=== PATIENT | female | born 1940 | race Caucasian/White ===

== ENCOUNTER 2019-11-14 13:55 | Outpatient (CLI) | payer MEDICARE, SELFPAY ==
--- NOTE | ~2019-11-14 | US_ITS ---
EXAMINATION: US retroperitoneal comp EXAM DATE: 11/14/2019 14:36 INDICATION: Hematuria. TECHNIQUE: Multiple grayscale and Doppler images of the kidneys were obtained (by a technologist who performed the scan) and subsequently reviewed. Comparison is made to prior examination from 09/24/2012 . FINDINGS: Right kidney: There is normal contour and echogenicity. It measures 9.8 x 4.1 x 6.8 centimeters. The re is a 1 cm renal cyst. There is no hydronephrosis. Left kidney: There is normal contour and echogenicity. It measures 11.0 x 4.8 x 7.0 centimeters. Th ere are no focal renal lesions identified. There is no hydronephrosis. Bladder unremarkable. IMPRESSION: 1. Sonographically unremarkable kidneys. Reviewed, dictated and finalized at location A.
== END 2019-11-14 13:56 | disposition home or self-care (01) ==
LOC: CHSIMG 13:56
PROVIDERS: PCP Internal Medicine; Visit Provider Internal Medicine
DX: R31.9 Hematuria, unspecified (principal)
CPT/HCPCS: 76770

== ENCOUNTER 2020-04-13 12:41 | Outpatient (CLI) | payer MEDICARE, SELFPAY ==
--- NOTE | ~2020-04-13 | XR_ITS ---
EXAMINATION: XR chest 2V EXAM DATE: 04/13/2020 12:56 INDICATION: Irregular heartbeat. TECHNIQUE: Frontal and lateral projections of the chest obtained and reviewed. Comparison is made to prior examination from 05/03/2016. FINDINGS: Chronic moderate hyperinflation. Mild cardiomegaly, heart size larger than in 2017. No con fluent consolidation, pneumothorax or pleural effusion suspected. There are mild bony degenerative ch anges. IMPRESSION: Cardiomegaly. Hyperinflation. Reviewed, dictated and finalized at location B. [facility]
== END 2020-04-13 12:42 | disposition home or self-care (01) ==
LOC: CHSIMG 12:43
PROVIDERS: PCP Internal Medicine; Visit Provider Internal Medicine
DX: I48.91 Unspecified atrial fibrillation (principal); I65.21 Occlusion and stenosis of right carotid artery
CPT/HCPCS: 71046

== ENCOUNTER 2020-04-19 13:15 | Outpatient (CLI) | payer MEDICARE, SELFPAY ==
--- NOTE | ~2020-04-19 | US_ITS ---
EXAMINATION: US carotid duplex BI DATE: 04/19/2020 14:54 INDICATION: Right carotid stenosis. TECHNIQUE: Grayscale, color Doppler, and pulsed Doppler images of the cervical carotid arteries were obtained. The degree of vessel stenosis is placed in one of the following categories: normal, <50%, 5 0-69%, >=70% but less than near-occlusion, near-occlusion, or total occlusion. Note that percent sten osis relative to normal distal artery lumen diameter is indirectly measured from velocity measurement s as described by Kamari, et al. Radiology 2003; [id number]:[id number]. COMPARISON: None. FINDINGS: RIGHT: The right common carotid artery (CCA) peak systolic velocity (PSV) is 50 cm/s. The right internal car otid artery (ICA) PSV is 60 cm/s. The right ICA end-diastolic velocity (EDV) is 31 cm/s. The right IC A/CCA PSV ratio is 1.2. Grayscale and color Doppler images yield an estimate of <50% diameter reducti on from plaque in the ICA. There is antegrade flow in the right vertebral artery. LEFT: The left CCA PSV is 65 cm/s. The left ICA PSV is 80 cm/s. The left ICA EDV is 38 cm/s. The left ICA/C CA PSV ratio is 1.2. Grayscale and color Doppler images yield an estimate of <50% diameter reduction from plaque in the ICA. There is antegrade flow in the left vertebral artery. IMPRESSION: 1. <50% stenosis in the right internal carotid artery. 2. <50% stenosis in the left internal carotid artery. Reviewed, dictated and finalized at location B. TIDIGITATOR
--- NOTE | 2020-04-19 13:23 | ECHO_ITS ---
Patient Info Name: Elva Campbell Age: 79 years : 1940 Gender: Female Ht: 64 in Wt: 140 lbs BSA: 1.70 m2 HR: 107 bpm BP: 188 / 124 mmHg Heart Rhythm: Atrial Fibrillation Technical Quality: Fair Exam Date: 04/19/2020 1:30 PM Exam Location: [facility] Patient Status: Outpatient Admit Date: 04/19/2020 Staff Ordering Physician: Kathe Villasenor MD Bilingual Spanish Inbound Sales: Tracie Arriola RDCS Attending Provider: Kathe Villasenor MD Referring Physician: Hamilton WATSON; Exam Type: CA echo doppler color flow Study Info Indications I49.9 - Cardiac arrhythmia, unspecified Complete two-dimensional, color flow and Doppler transthoracic echocardiogram is performed. Strain analysis performed. History/Risk Factors Hypertension: Yes Dyslipidemia: No Obesity: No Tobacco Use: Never DVT Treatment: Apixaban Deep Vein Thrombosis (DVT): None Frailty Scale (CSHA): 2: Well Summary 1. Complete two-dimensional, color flow and Doppler transthoracic echocardiogram is performed. 2. Left ventricular chamber dimension is normal. 3. Left ventricular systolic function is normal, estimated at 60-65%. 4. The left ventricular diastolic function is abnormal. 5. E/e' 28 is significantly elevated. 6. Global longitudinal strain is abnormal at -12.4%. 7. Right ventricular systolic function is reduced based on a TAPSE at 1.4 cm. 8. Left atrial chamber dimension is severely enlarged. 9. Right atrial chamber dimension is moderately enlarged. 10. There is mild aortic valve sclerosis. 11. The mitral valve has moderately calcified annulus. 12. There is moderate mitral valve regurgitation. 13. There is moderate tricuspid valve regurgitation. 14. Moderate pulmonary hypertension, estimated pulmonary arterial systolic pressure is 54 mmHg. Left Ventricle E/e' 28 is significantly elevated. Global longitudinal strain is abnormal at -12.4%. Left ventricular chamber dimension is normal. Left ventricular systolic function is normal, estimated at 60-65%. The left ventricular diastolic function is abnormal. Right Ventricle Right ventricular systolic function is reduced based on a TAPSE at 1.4 cm. Right ventricular chamber dimension is normal. Left Atria Left atrial chamber dimension is severely enlarged. Right Atria Right atrial chamber dimension is moderately enlarged. Aortic Valve The aortic valve is trileaflet. There is mild aortic valve sclerosis. There is no aortic valve stenosis. There is no aortic valve regurgitation. Pulmonic Valve There is no pulmonic regurgitation. Mitral Valve The mitral valve has moderately calcified annulus. There is no mitral valve stenosis. There is moderate mitral valve regurgitation. Tricuspid Valve There is moderate tricuspid valve regurgitation. Moderate pulmonary hypertension, estimated pulmonary arterial systolic pressure is 54 mmHg. Pericardium/Pleural There is no pericardial effusion. Inferior Vena Cava Normal inferior vena cava with >50% collapse upon inspiration consistent with normal right atrial pressure, 5 mmHg. Aorta The aortic root size at the sinus of Valsalva is normal. Left Ventricular Outflow Tract Name Value Normal LVOT 2D
== END 2020-04-19 13:16 | disposition home or self-care (01) ==
LOC: CHSIMG 13:16
PROVIDERS: PCP Internal Medicine; Visit Provider Internal Medicine
DX: I48.91 Unspecified atrial fibrillation (principal); I65.21 Occlusion and stenosis of right carotid artery
CPT/HCPCS: 93306; 93880

== ENCOUNTER 2021-09-13 11:31 | Emergency (ER) | payer MEDICARE, SELFPAY ==
--- NOTE | ~2021-09-13 | XR_ITS ---
EXAMINATION: XR chest 1V portable Exam Date/Time: 09/13/2021 14:00 CDT HISTORY: elevated BNP. Evaluate for CHF. Comparison: 04/13/2020. RESULT: Lines, tubes, and devices: None. Lungs and pleura: Subtle groundglass opacity in the left lower lung. Cardiomediastinal silhouette: Stable cardiomediastinal silhouette. Other: No acute osseous or upper abdominal finding. IMPRESSION: Left lower lung ground glass opacity may represent the consolidation of infection, to include atypica l/viral disease. Pattern considered less likely for edema. Reviewed, dictated and finalized at location K. IMPRESSION: Left lower lung ground glass opacity may represent the consolidation of infecti on, to include atypical/viral disease. Pattern considered less likely for edema .
--- NOTE | ~2021-09-13 | CT_ITS ---
EXAMINATION: CT brain wo con DATE: 09/13/2021 12:10 INDICATION: Syncope. Generalized weakness and frequent falls TECHNIQUE: Computed tomography (CT) of the head was performed without intravenous contrast. Sagittal and coronal reconstructions were performed. The mA was adjusted according to patient size. Iterative reconstruction technique was employed. The dose-length product was 605.33 mGy-cm. COMPARISON: None FINDINGS: No fracture. No acute intracranial hemorrhage, acute infarction or abnormal extra axial fluid collect ion. There is mild to moderate scattered white matter hypoattenuation consistent with chronic small v essel ischemic disease. Ventricles are normal and symmetric. No mass/mass effect. The orbits, parana nestor sinuses and mastoid air cells are normal. Moderate bilateral temporomandibular osteoarthritis. In tracranial calcified cerebral atherosclerosis is noted. IMPRESSION: 1. No fracture or acute intracranial process. 2. Mild to moderate scattered white matter hypoattenuation consistent with chronic small vessel ische hilario disease. Reviewed, dictated and finalized at location A. IMPRESSION: 1. No fracture or acute intracranial process. 2. Mild to moderate scattered white matter hypoattenuation consistent with associate professor physician masoud small vessel ischemic disease.
[2021-09-13 11:35] VITALS: BP 150/96; PULSE 108; RESP 18; TEMP 36.6; O2SAT 98
--- NOTE | 2021-09-13 11:49 | ECG_ITS ---
Measurements Intervals [place] Rate: 122 P: WI: 0 QRS: 25 QRSD: 86 T: 67 QT: 326 QTc: 465 Interpretive Statements ATRIAL FIBRILLATION WITH RAPID VENTRICULAR RESPONSE ST SEGMENT ABNORMALITY-CONSIDER ISCHEMIA Electronically Signed On 09-13-2021 12:15:43 CDT by Nikolas Bronson M.D.
[2021-09-13 12:00] VITALS: BP 136/71; PULSE 128
--- NOTE | 2021-09-13 12:01 | ED.GENADULT ---
HPI - General Adult General Chief complaint: Syncope Stated complaint: DIZZY,FALL Time Seen by Provider: 09/13/21 12:02 History of Present Illness HPI narrative: 80-year-old woman with past medical history of hypertension, atrial fibrillation on Eliquis therapy without any anti-platelet medications. No history of TIAs or strokes or myocardial infarctions or syncope. 5 days ago, the patient fell in her garage, landing on her right buttocks area. She was ambulatory following this event. She had no further episodes until today where she had 3 episodes of falls, once in the bathroom, once close to the bedroom door in the bathroom, and once in the carpet in the bedroom. She fell dizzy and lightheaded. She reported was syncopal for few seconds. EMS were notified. She felt dizzy and lightheaded. No seizure-like activity. No loss of bladder or bowel control. Upon their arrival, the blood pressure was 60/40 with a pulse of 130. IV access was established and fluids were administered. She was brought here for evaluation. She denies headache or neck pain or back pain. Only complaint is right buttocks pain at the site of the hematoma. Able to raise either leg and in her arm without much difficulty. No dizziness present. No nausea or vomiting. No chest pain or abdominal pain. No urinary symptoms. No fevers or chills or diaphoresis. Related Data Home Medications Medication Instructions Recorded Confirmed lactobacillus combination no.9 4 4,000 mmu cells PO DAILY 04/15/20 09/13/21 billion cell capsule (Adult 50 Plus Probiotic) acetaminophen 325 mg capsule 325 mg PO Q6H PRN Pain, Moderate 08/02/20 09/13/21 (Tylenol) cetirizine 10 mg capsule (Zyrtec) 10 mg PO DAILY PRN Allergy Symptoms 08/02/20 09/13/21 chlordiazepoxide HCl 5 mg capsule 5 mg PO Q12H PRN Agitation 08/02/20 09/13/21 cholecalciferol (vitamin D3) 25 25 mcg PO DAILY 08/02/20 09/13/21 mcg (1,000 unit) capsule inulin 2 gram chewable tablet 2 g PO DAILY 08/02/20 09/13/21 (Fiber Gummies) multivitamin with minerals-folic tablet PO 05/03/21 05/02/22 acid 200 mcg chewable tablet (Adult Multivitamin Gummies) apixaban 5 mg tablet (Eliquis) 5 mg PO BID 01/31/21 09/13/21 Allergies Allergy/AdvReac Type Severity Reaction Status Date / Time metronidazole [From Flagyl] Allergy Mild Unknown Verified 09/13/21 11:56 nitrofurantoin Allergy Mild lightheaded Verified 09/13/21 11:56 [From Macrobid] Sulfa (Sulfonamide Allergy Mild Unknown Verified 09/13/21 11:56 Antibiotics) Review of Systems Review of Systems: All systems reviewed & are unremarkable except as noted in HPI and below Constitutional: Constitutional: Reports no additional constitutional complaints, Denies anorexia, Denies body ache(s), Denies chills, Denies excessive sweating, Denies fatigue, Denies fever(s), Denies frequent falls, Denies headache(s), Denies malaise and Denies poor appetite Eyes: Eyes: Reports no additional eye complaints, Denies blurry vision, Denies change in vision, Denies irritation, Denies itchy eyes and Denies photophobia ENT: Reports system reviewed and no additional complaints, except as documented, Reports Normal hearing present, Denies change in voice, Denies dysphagia, Denies vertigo, Reports dizziness, Denies ear discharge, Denies headache(s), Denies hearing loss, Denies hoarseness, Denies nasal congestion, Denies neck pain, Denies sinus pressure, Denies sore throat and Denies throat swelling Cardiovascular: Cardiovascular: Reports no additional cardiovascular complaints, Denies chest pain, Reports syncope, Denies rapid heart rate, Reports irregular heart rhythm, Denies leg edema, Denies dyspnea and Denies slow heart rate Respiratory: Respiratory: Reports no additional respiratory complaints, Denies chest congestion, Denies cough, Denies dyspnea, Denies stridor and Denies wheezing Gastrointestinal: Gastrointestinal: Reports no additional gastrointestinal complaints, De
[2021-09-13 12:03] VITALS: BP 139/68
[2021-09-13 12:08] VITALS: BP 134/70; PULSE 135
[2021-09-13 12:22] LABS: Basophils Absolute Auto 0.04 K/mm3 (0.00-0.10); Basophils Percent Auto 0.3 % (0.0-1.0); Hemoglobin 10.1 g/dL (11.7-13.8); Immature Granulocyte Absolute 0.14 K/mm3 (0.00-0.00); Immature Granulocyte Percent A 0.9 % (0.0-0.0); Lymphocytes Absolute Auto 1.25 K/mm3 (1.10-4.50); Lymphocytes Percent Auto 8.2 % (18.0-42.0); Mean Corpuscular HGB Conc 33.7 g/dL (32.0-36.0); Mean Corpuscular Hemoglobin 30.2 pg (27.0-31.0); Mean Corpuscular Volume 89.8 fL (78.0-102.0); Mean Platelet Volume 10.6 fl (9.2-11.8); Monocytes Absolute Auto 0.64 K/mm3 (0.10-0.90); Monocytes Percent Auto 4.2 % (2.0-11.0); Neutrophils Absolute Auto 13.2 K/mm3 (1.7-7.2); Neutrophils Percent Auto 86.4 % (50.0-70.0); Platelet Count Result 240 K/mm3 (150-420); Red Blood Count 3.34 M/mm3 (4.20-5.40); Red Cell Distribution Width 13.2 % (11.6-14.4); White Blood Count 15.3 K/mm3 (4.8-10.8)
[2021-09-13] MEDS: SODIUM CHLORIDE 0.9% IV 1,000 ML 999 ML IV CONT (12:23)
[2021-09-13] MEDS: dilTIAZem HCl INJ 25 MG/5 ML VIAL 10 MG IV PUSH (12:24)
[2021-09-13] MEDS: MAGNESIUM SULF 2 GM/WATER 50ML 2 GM/50 ML BAG IVPB (12:28)
[2021-09-13 12:39] LABS: Alanine Aminotransferase 23 U/L (14-59); Albumin Level 3.6 g/dL (3.4-5.0); Alkaline Phosphatase 63 U/L (46-116); Anion Gap 10 mmol/L (8-16); Aspartate Amino Transferase 18 U/L (15-37); Blood Urea Nitrogen 17 mg/dL (7-18); Calcium 8.8 mg/dL (8.5-10.1); Carbon Dioxide 26 mmol/L (21-32); Chloride 99 mmol/L (98-108); Estimated Glomerular Filt Rate 53; Glucose 152 mg/dL (70-99); Osmolality Calculated 284 mOsm/kg (285-295); Potassium 3.3 mmol/L (3.5-5.1); Sodium 135 mmol/L (136-145); Troponin I 16.7 ng/L (0.00-60.4)
[2021-09-13 12:42] LABS: Magnesium 1.8 mg/dL (1.8-2.4); NT Pro B Type Natriuretic Pept 4806 pg/mL (0-450)
[2021-09-13 14:12] LABS: Add Urine Microscopic? YES; Appearance Urine Clear (Clear); Bilirubin Urine Negative (Negative); Blood Urine Negative (Negative); Color Urine Light Yellow (Yellow); Glucose Urine UA Trace (Negative); Ketones Urine 1+ (Negative); Leukocyte Esterase Ur Trace LEU/UL (Negative); Nitrate Urine Positive (Negative); Protein Urine Negative (Negative); Specific Grav Ur <= 1.005 (1.010-1.020); Urobilinogen Urine 0.2 mg/dL (0.2-1.0); pH Urine 5.5 (5.0-8.0)
[2021-09-13 14:17] LABS: Bacteria Urine 2+ /hpf; RBC Urine 0-2 /hpf (0-2); Squamous Epithelial Cell Urine Rare /hpf (Few)
[2021-09-13] MEDS: POTASSIUM BICARBONATE 25 MEQ TABEF 50 MEQ PO (14:23)
[2021-09-13 15:12] LABS: SARS-CoV-2 RNA PCR Negative (Negative)
--- NOTE | 2021-09-13 15:57 | ECG_ITS ---
Measurements Intervals [place] Rate: 101 P: DC: 0 QRS: 4 QRSD: 77 T: 29 QT: 345 QTc: 448 Interpretive Statements ATRIAL FIBRILLATION WITH RAPID VENTRICULAR RESPONSE POSSIBLE ANTERIOR MYOCARDIAL INFARCTION , PROBABLY OLD [30 ms Q WAVE IN V3/V4, OR R < 0.2 mV IN V4] NONSPECIFIC ST ABNORMALITY ABNORMAL ECG COMPARED TO ECG 09/13/2021 11:55:39 NO SIGNIFICANT CHANGES Electronically Signed On 09-14-2021 10:01:13 CDT by Maikol Lott M.D.
[2021-09-13 16:10] VITALS: BP 103/70; PULSE 98; RESP 16; TEMP 36.7; O2SAT 99
--- NOTE | 2021-09-14 02:30 | ED.GENADULT ---
HPI - General Adult General Chief complaint: Syncope Stated complaint: DIZZY,FALL Time Seen by Provider: 09/13/21 12:02 History of Present Illness HPI narrative: ? 80-year-old woman with past medical history of hypertension, atrial fibrillation on Eliquis therapy without any anti-platelet medications.? No history of TIAs or strokes or myocardial infarctions or syncope. ?? 6 days ago, the patient fell in her garage,? landing on her right buttocks area.? She was ambulatory following this event.? She had no further episodes until yesterday, 09/13/2021, where she had 3 episodes of falls, once in the bathroom, once close to the bedroom door in the bathroom, and once in the carpet in the bedroom.? She fell dizzy and lightheaded.? She reported was syncopal for few seconds.? EMS were notified.? She felt dizzy and lightheaded.? No seizure-like activity.? No loss of bladder or bowel control.? Upon their arrival, the blood pressure was 60/40 with a pulse of 130.? IV access was established and fluids were administered.? She was brought here for evaluation. Her workup revealed atrial fibrillation with rapid ventricular response with ST depressions laterally. She did not have any chest discomfort and the troponin was normal. She received IV fluids. Diltiazem 10 mg was given IV. Her repeat EKG was much improved with resolution of the ST/T wave changes laterally at the slower heart rate. She had a head CT done, which was unremarkable (see results below). The CXR raised the possibility of left lower lung ground glass opacities. She had no cough. She had a UTI, so was treated with IV Rocephin here, and discharged on Keflex a few hours ago. She was NOT orthostatic during her ER evaluation. She fell another time at home and could not get up. Her could not help get her up. The daughter does not live with them. EMS was notified. An EKG was done by EMS: this has been reviewed and revealed: EKG (EMS, 09/14/2021, 02:05 am): atrial fibrillation, rate 2011, rapid ventricular response, nonspecific ST and T-wave changes, no acute ST elevation or depression. Her BP by EMS was 160/80. She was mentating well. HEAD CT: EXAMINATION: CT brain wo con DATE: 09/13/2021 12:10 INDICATION: Syncope. Generalized weakness and frequent falls TECHNIQUE: Computed tomography (CT) of the head was performed without intravenous contrast. Sagittal and coronal reconstructions were performed. The mA was adjusted according to patient size. Iterative reconstruction technique was employed. The dose-length product was 605.33 mGy-cm. COMPARISON: None FINDINGS: No fracture. No acute intracranial hemorrhage, acute infarction or abnormal extra axial fluid collection. There is mild to moderate scattered white matter hypoattenuation consistent with chronic small vessel ischemic disease.? Ventricles are normal and symmetric. No mass/mass effect. The orbits, paranasal sinuses and mastoid air cells are normal. Moderate bilateral temporomandibular osteoarthritis. Intracranial calcified cerebral atherosclerosis is noted. IMPRESSION: 1. No fracture or acute intracranial process. 2. Mild to moderate scattered white matter hypoattenuation consistent with chronic small vessel ischemic disease. CHEST X_RAY EXAMINATION:? XR chest 1V portable Exam Date/Time:? 09/13/2021 14:00 CDT HISTORY: elevated BNP. Evaluate for CHF. ? Comparison:? 04/13/2020. RESULT: Lines, tubes, and devices:? None. Lungs and pleura:? Subtle groundglass opacity in the left lower lung. Cardiomediastinal silhouette:? Stable cardiomediastinal silhouette. Other:? No acute osseous or upper abdominal finding.? IMPRESSION: Left lower lung ground glass opacity may represent the consolidation of infection, to include atypical/viral disease. Pattern considered less likely for edema. ? Related Data Home Medications Medication Instructions Recorded Confirmed lactobacillus combination no.9 4 4,000 mmu cells PO DAILY 04/15/20 09/13/21 billion cell c
== END 2021-09-13 16:15 | disposition home or self-care (01) ==
PROVIDERS: Emergency Provider Emergency Medicine; PCP Internal Medicine
DX: R55 Syncope and collapse (principal); N39.0 Urinary tract infection, site not specified; E87.6 Hypokalemia; S30.0XXA Contusion of lower back and pelvis, initial encounter; R42 Dizziness and giddiness; I48.20 Chronic atrial fibrillation, unspecified; Z79.01 Long term (current) use of anticoagulants; W19.XXXA Unspecified fall, initial encounter; M81.0 Age-related osteoporosis without current pathological fracture; I10 Essential (primary) hypertension; E78.2 Mixed hyperlipidemia; Z20.822 Contact with and (suspected) exposure to COVID-19
CPT/HCPCS: 36415; 70450; 71045; 80053; 81001; 83735; 83880; 84484; 85025; 87077; 87086; 87088; 87186; 93005; 96365; 96367; 96375; 99284; A9270; C9803; J0696; J3475; J7030; U0003; U0005

== ENCOUNTER 2021-09-14 02:28 | Inpatient (IN) | payer MEDICARE, SELFPAY ==
[2021-09-14] VITALS (18 sets, daily range): BP systolic 115–165; BP diastolic 66–107; PULSE 59–103; RESP 16–18; TEMP 36.6–37.1; O2SAT 94–100; BMI 23.0
--- NOTE | ~2021-09-14 | CT_ITS ---
EXAMINATION: CT LE RT wo con DATE: 09/14/2021 10:55 INDICATION: Pain and bruising at the right hip and buttock post fall TECHNIQUE: High resolution computed tomography (CT) of the right hip was performed without intravenou s contrast. Additional sagittal and coronal reconstructions were performed. Automated exposure contro l and iterative reconstruction technique were employed. The dose-length product was 787.34 mGy-cm. COMPARISON: None FINDINGS: Bone alignment is normal. No fracture. Mild osteoarthritis at the right hip and sacroiliac joints. Bi lateral severe facet osteoarthritis at L4-L5 and L5-S1. Intramuscular hematoma within the right glute us oswaldo muscle which extends 11 cm craniocaudally and measures up to 7 x 3.5 cm in maximal transax ial dimensions. There is some overlying subcutaneous edema. No right hip joint effusion. There are fe w diverticula along the visualized portion of the sigmoid colon. The uterus is not identified and has likely been surgically resected. A few phleboliths in the pelvis. No pathologically enlarged right p elvic or inguinal lymphadenopathy. IMPRESSION: 1. 11 x 7 x 3.5 cm hematoma within the right gluteus oswaldo muscle. No fracture. Reviewed, dictated and finalized at location A. IMPRESSION: 1. 11 x 7 x 3.5 cm hematoma within the right gluteus oswaldo muscle. No fractur e.
--- NOTE | 2021-09-14 02:48 | ED.GENADULT ---
HPI - General Adult General Chief complaint: Fall Stated complaint: FALL History of Present Illness HPI narrative: 80-year-old woman with past medical history of hypertension, atrial fibrillation on Eliquis therapy without any anti-platelet medications.? No history of TIAs or strokes or myocardial infarctions or syncope. ?? 6 days ago, the patient fell in her garage,? landing on her right buttocks area.? She was ambulatory following this event.? She had no further episodes until yesterday, 09/13/2021, where she had 3 episodes of falls, once in the bathroom, once close to the bedroom door in the bathroom, and once in the carpet in the bedroom.? She fell dizzy and lightheaded.? She reported was syncopal for few seconds.? EMS were notified.? She felt dizzy and lightheaded.? No seizure-like activity.? No loss of bladder or bowel control.? Upon their arrival, the blood pressure was 60/40 with a pulse of 130.? IV access was established and fluids were administered.? She was brought here for evaluation. Her workup revealed atrial fibrillation with rapid ventricular response with ST depressions laterally. She did not have any chest discomfort and the troponin was normal. She received IV fluids. Diltiazem 10 mg was given IV. Her repeat EKG was much improved with resolution of the ST/T wave changes laterally at the slower heart rate. She had a head CT done, which was unremarkable (see results below). The CXR raised the possibility of left lower lung ground glass opacities. She had no cough. She had a UTI, so was treated with IV Rocephin here, and discharged on Keflex a few hours ago. She was NOT orthostatic during her ER evaluation. She fell another time at home and could not get up. Her could not help get her up. The daughter does not live with them. EMS was notified. An EKG was done by EMS: this has been reviewed and revealed: EKG (EMS, 09/14/2021, 02:05 am): atrial fibrillation, rate 2011, rapid ventricular response, nonspecific ST and T-wave changes, no acute ST elevation or depression. Her BP by EMS was 160/80. She was mentating well. She requests rehab. HEAD CT: EXAMINATION: CT brain wo con DATE: 09/13/2021 12:10 INDICATION: Syncope. Generalized weakness and frequent falls TECHNIQUE: Computed tomography (CT) of the head was performed without intravenous contrast. Sagittal and coronal reconstructions were performed. The mA was adjusted according to patient size. Iterative reconstruction technique was employed. The dose-length product was 605.33 mGy-cm. COMPARISON: None FINDINGS: No fracture. No acute intracranial hemorrhage, acute infarction or abnormal extra axial fluid collection. There is mild to moderate scattered white matter hypoattenuation consistent with chronic small vessel ischemic disease.? Ventricles are normal and symmetric. No mass/mass effect. The orbits, paranasal sinuses and mastoid air cells are normal. Moderate bilateral temporomandibular osteoarthritis. Intracranial calcified cerebral atherosclerosis is noted. IMPRESSION: 1. No fracture or acute intracranial process. 2. Mild to moderate scattered white matter hypoattenuation consistent with chronic small vessel ischemic disease. CHEST X_RAY EXAMINATION:? XR chest 1V portable Exam Date/Time:? 09/13/2021 14:00 CDT HISTORY: elevated BNP. Evaluate for CHF. ? Comparison:? 04/13/2020. RESULT: Lines, tubes, and devices:? None. Lungs and pleura:? Subtle groundglass opacity in the left lower lung. Cardiomediastinal silhouette:? Stable cardiomediastinal silhouette. Other:? No acute osseous or upper abdominal finding.? IMPRESSION: Left lower lung ground glass opacity may represent the consolidation of infection, to include atypical/viral disease. Pattern considered less likely for edema. Related Data Home Medications Medication Instructions Recorded Confirmed lactobacillus combination no.9 4 4,000 mmu cells PO DAILY 04/15/20 09/14/21 billion cell capsule (Adult 50 Plus Probiotic)
[2021-09-14] MEDS: SODIUM CHLORIDE 0.9% IV 1,000 ML 100 ML IV CONT (03:25)
[2021-09-14] MEDS: dilTIAZem HCl INJ 25 MG/5 ML VIAL 10 MG IV PUSH (03:26)
[2021-09-14 03:44] LABS: Basophils Absolute Auto 0.01 K/mm3 (0.00-0.10); Basophils Percent Auto 0.1 % (0.0-1.0); Hematocrit 24.2 % (35.0-42.0); Immature Granulocyte Absolute 0.12 K/mm3 (0.00-0.00); Immature Granulocyte Percent A 0.8 % (0.0-0.0); Lymphocytes Absolute Auto 1.56 K/mm3 (1.10-4.50); Lymphocytes Percent Auto 10.3 % (18.0-42.0); Mean Corpuscular HGB Conc 33.1 g/dL (32.0-36.0); Mean Corpuscular Hemoglobin 29.9 pg (27.0-31.0); Mean Corpuscular Volume 90.3 fL (78.0-102.0); Mean Platelet Volume 10.2 fl (9.2-11.8); Monocytes Absolute Auto 1.16 K/mm3 (0.10-0.90); Monocytes Percent Auto 7.7 % (2.0-11.0); Neutrophils Absolute Auto 12.3 K/mm3 (1.7-7.2); Neutrophils Percent Auto 81.1 % (50.0-70.0); Platelet Count Result 194 K/mm3 (150-420); Red Blood Count 2.68 M/mm3 (4.20-5.40); Red Cell Distribution Width 13.5 % (11.6-14.4); White Blood Count 15.1 K/mm3 (4.8-10.8)
[2021-09-14 04:05] LABS: Alanine Aminotransferase 19 U/L (14-59); Albumin Level 3.3 g/dL (3.4-5.0); Alkaline Phosphatase 56 U/L (46-116); Anion Gap 8 mmol/L (8-16); Aspartate Amino Transferase 21 U/L (15-37); Bilirubin,Total 0.7 mg/dL (0.00-1.00); Blood Urea Nitrogen 19 mg/dL (7-18); Calcium 8.8 mg/dL (8.5-10.1); Carbon Dioxide 25 mmol/L (21-32); Chloride 98 mmol/L (98-108); Estimated CRCL calculation 36 ml/min; Estimated Glomerular Filt Rate 59; Glucose 146 mg/dL (70-99); Osmolality Calculated 277 mOsm/kg (285-295); Potassium 3.9 mmol/L (3.5-5.1); Sodium 131 mmol/L (136-145)
--- NOTE | 2021-09-14 04:22 | PC.NURSE ---
pt to be admitted as an inpatient into room 208
--- NOTE | 2021-09-14 05:14 | ADMGEN ---
This patient, Elva Campbell, was admitted to 2nd Floor Room 208-2. Patient/family oriented to hospital policies and general routines including ID bracelet, bed and alarms, visiting hours, pain management, procedures, bathroom and other care routines, personal items, smoking policy, room service/diet, and visiting hours. Information on how to activate the Rapid Response Team has been discussed. Patient/Family are encouraged to report perceived risks to care and to ask questions if they do not understand what they are told or what they should do.
[2021-09-14] MEDS: METOPROLOL TARTRATE 50 MG TAB BY MOUTH ×3 (05:57→21:07)
[2021-09-14] MEDS: CHOLECALCIFEROL 1,000 UNITS TABLET 1000 UNITS PO (08:47)
[2021-09-14] MEDS: CEPHALEXIN 500 MG CAPSULE PO (08:47)
[2021-09-14] MEDS: APIXABAN 2.5 MG TABLET 5 MG PO ×2 (08:47→21:06)
[2021-09-14] MEDS: MULTIVITAMINS THERAPEUTIC TAB (*BKC) 1 TABLET PO (08:47)
[2021-09-14] MEDS: ACETAMINOPHEN 325 MG TABLET 650 MG PO (11:43)
[2021-09-14] MEDS: HYDROcodone/acetaminophen (*CRX) 5-325 MG TABLET 1 TAB PO (21:11)
[2021-09-14] MEDS: DOCUSATE SODIUM 100 MG CAPSULE PO (21:12)
[2021-09-15] VITALS (16 sets, daily range): BP systolic 113–176; BP diastolic 63–116; PULSE 73–115; RESP 16–20; TEMP 36.3–37.3; O2SAT 96–100
--- NOTE | 2021-09-15 00:25 | PC.NURSE ---
Notified Angela Malloy NP, regarding pt's anxiety and elevated blood pressure; New orders received and noted.
[2021-09-15] MEDS: hydrALAZINE HCL 20 MG/ML VIAL 5 MG IV PUSH (01:05)
--- NOTE | 2021-09-15 01:05 | PC.NURSE ---
Drowsy; B/P:165/113; Hydralazine 0.25mg IVP given; After 3 minutes B/P:160/108.
[2021-09-15] MEDS: LORazepam INJ (*CRX) 2 MG/ML VIAL 0.5 MG IV PUSH (01:45)
[2021-09-15 05:07] LABS: Hematocrit 20.9 % (35.0-42.0); Hemoglobin 7.1 g/dL (11.7-13.8); Mean Corpuscular Hemoglobin 30.6 pg (27.0-31.0); Mean Corpuscular Volume 90.1 fL (78.0-102.0); Mean Platelet Volume 10.3 fl (9.2-11.8); Platelet Count Result 152 K/mm3 (150-420); Red Blood Count 2.32 M/mm3 (4.20-5.40); Red Cell Distribution Width 13.8 % (11.6-14.4); White Blood Count 10.5 K/mm3 (4.8-10.8)
[2021-09-15] MEDS: METOPROLOL TARTRATE 50 MG TAB BY MOUTH ×3 (05:20→22:08)
[2021-09-15 05:25] LABS: Alanine Aminotransferase 19 U/L (14-59); Albumin Level 2.8 g/dL (3.4-5.0); Alkaline Phosphatase 48 U/L (46-116); Anion Gap 5 mmol/L (8-16); Aspartate Amino Transferase 19 U/L (15-37); Bilirubin,Total 0.8 mg/dL (0.00-1.00); Blood Urea Nitrogen 15 mg/dL (7-18); Calcium 7.9 mg/dL (8.5-10.1); Carbon Dioxide 26 mmol/L (21-32); Chloride 100 mmol/L (98-108); Estimated CRCL calculation 46 ml/min; Estimated Glomerular Filt Rate > 60; Glucose 118 mg/dL (70-99); Osmolality Calculated 273 mOsm/kg (285-295); Potassium 3.7 mmol/L (3.5-5.1); Sodium 131 mmol/L (136-145); Total Protein 6.1 g/dL (6.4-8.2)
[2021-09-15] MEDS: LIDOCAINE 5% PATCH 1 PATCH TRANSDERM (08:08)
[2021-09-15] MEDS: CHOLECALCIFEROL 1,000 UNITS TABLET 1000 UNITS PO (08:10)
[2021-09-15] MEDS: APIXABAN 2.5 MG TABLET 5 MG PO (08:11)
[2021-09-15] MEDS: MULTIVITAMINS THERAPEUTIC TAB (*BKC) 1 TABLET PO (08:11)
[2021-09-15] MEDS: DOCUSATE SODIUM 100 MG CAPSULE PO ×2 (08:11→20:46)
--- NOTE | 2021-09-15 11:05 | PM.IMHP ---
H&P: HPI History of Present Illness Date/Time: 09/15/21 11:05 Chief Complaint: Weakness Narrative: This is a 80-year-old female who presents to urgent care with complaints of weakness status post fall. Patient has a past medical history of A. fib, hypertension, anxiety, and hyperlipidemia. According to patient and her in approximately 7 days ago she fell in her garage while attempting to catch a kitten patient notes that she landed on her right side and sustained a bruise to the right side of her hip. Patient notes that she came to the emergency department after her fall but I cannot find any records indicating that she was at our facility post fall. According to her she has not been able to ambulate without feeling weakness to her lower extremities. When questioned about her blacking out it was explained that she did not completely pass out she drifted to 1 side whenever she stood. Both the patient and her denies any syncopal episode. Her is unable to care for her at home and is requesting PT OT. Patient was also in admitted for UTI which could be the cause of her weakness. Vital signs 145/80, 81, 16, 97.7, 96% on room air, WBCs 15.3, hemoglobin 10.0, hematocrit 30.0, platelets 240, sodium 135, potassium 3.3, BUN 17, creatinine 1.0, glucose 152, calcium 8.8, magnesium 1.8, liver function test within normal limit, troponin 16.7, UA positive for glucose leukocyte esterase and bacteria. CT indicates hematoma to the right gluteus oswaldo no fracture, EKG indicates A. fib with RVR with a heart rate of 101. Patient been admitted for UTI she will transition into a swing bed. Patient continues to complain of pain to her right hip Review of Systems Review of Systems: A 14 organ system Review of Systems was performed and pertinent positives included in the HPI, otherwise remaining ROS is negative. [facility] Past Medical History Medical History (Updated 09/15/21 @ 11:27 by MIGUELINA Hart) Age related osteoporosis Atrial fibrillation Chronic anticoagulation Chronic maxillary sinusitis Chronic pharyngitis Essential hypertension Generalized anxiety disorder Impaired fasting glucose Interstitial cystitis (chronic) without hematuria Mixed hyperlipidemia Other chronic allergic conjunctivitis Other persistent atrial fibrillation Trigeminal neuralgia Varicose veins of bilateral lower extremities with other complications Surgical History Surgical History History of hysterectomy Social History Social History Smoking status: Never smoker Alcohol intake: never Substance use type: prescription drug Spiritual care concerns: Yes (Jain) Meds Home Medications and Allergies Home Medications Medication Instructions Recorded Confirmed Type lactobacillus combination no.9 4 4,000 mmu cells PO DAILY 04/15/20 09/14/21 History billion cell capsule (Adult 50 Plus Probiotic) acetaminophen 325 mg capsule 325 mg PO Q6H PRN Pain, Moderate 08/02/20 09/14/21 History (Tylenol) cetirizine 10 mg capsule (Zyrtec) 10 mg PO DAILY PRN Allergy Symptoms 08/02/20 09/14/21 History chlordiazepoxide HCl 5 mg capsule 5 mg PO Q12H PRN Agitation 08/02/20 09/14/21 History cholecalciferol (vitamin D3) 25 25 mcg PO DAILY 08/02/20 09/14/21 History mcg (1,000 unit) capsule inulin 2 gram chewable tablet 2 g PO DAILY 08/02/20 09/14/21 History (Fiber Gummies) multivitamin with minerals-folic 1 tablet PO DAILY 08/02/20 09/14/21 History acid 200 mcg chewable tablet (Adult Multivitamin Gummies) apixaban 5 mg tablet (Eliquis) 5 mg PO BID 01/31/21 09/14/21 History metoprolol tartrate 50 mg tablet See Rx Instructions .Route 08/14/21 09/14/21 Rx .COMPLEX #270 tabs cephalexin 500 mg capsule 500 mg PO Q12H 7 days #14 caps 09/13/21 09/14/21 Rx Allergies Allergy/AdvReac Type Severity Reaction
--- NOTE | 2021-09-15 13:09 | PHAR ---
med from home identified - chloridazepoxide 5 mg [facility] rx [id number] - bottle order is for tid prn
[2021-09-15] MEDS: HYDROcodone/acetaminophen (*CRX) 5-325 MG TABLET 1 TAB PO (16:38)
[2021-09-15] MEDS: traZODone HCL 50 MG TABLET PO (20:50)
[2021-09-16] VITALS (8 sets, daily range): BP systolic 124–128; BP diastolic 65–73; PULSE 67–98; RESP 16; TEMP 36.6–37.1; O2SAT 97–98
[2021-09-16 05:27] LABS: Immature Reticulocyte Fraction 36.4 % (2.0-16.52); Reticulocyte Hemoglobin Conten 34.8 pg (28.0-35.0); Reticulocyte Percent 5.14 % (0.50-1.50); Reticulocytes Absolute 0.13 M/mm3 (0.02-0.1)
[2021-09-16 06:11] LABS: Bilirubin Direct 0.2 mg/dL (0-0.2); Bilirubin,Total 0.8 mg/dL (0.00-1.00); Ferritin 118 ng/mL (8-252); Iron 54 ug/dL (50-170); Percent Iron Saturation 19 % (12-57); Vitamin B12 549 pg/mL (193-986)
[2021-09-16] MEDS: METOPROLOL TARTRATE 50 MG TAB BY MOUTH ×3 (06:19→21:48)
[2021-09-16 07:51] LABS: Hematocrit 24.2 % (35.0-42.0); Mean Corpuscular HGB Conc 33.1 g/dL (32.0-36.0); Mean Corpuscular Hemoglobin 30.8 pg (27.0-31.0); Mean Corpuscular Volume 93.1 fL (78.0-102.0); Mean Platelet Volume 10.9 fl (9.2-11.8); Platelet Count Result 199 K/mm3 (150-420); Red Cell Distribution Width 14.2 % (11.6-14.4); White Blood Count 11.7 K/mm3 (4.8-10.8)
[2021-09-16] MEDS: LIDOCAINE 5% PATCH 1 PATCH TRANSDERM (08:54)
[2021-09-16] MEDS: MULTIVITAMINS THERAPEUTIC TAB (*BKC) 1 TABLET PO (08:56)
[2021-09-16] MEDS: CHOLECALCIFEROL 1,000 UNITS TABLET 1000 UNITS PO (08:56)
[2021-09-16] MEDS: DOCUSATE SODIUM 100 MG CAPSULE PO ×2 (08:56→20:28)
[2021-09-16] MEDS: HYDROcodone/acetaminophen (*CRX) 5-325 MG TABLET 1 TAB PO (08:57)
--- NOTE | 2021-09-16 11:08 | WPDPN ---
Progress Note: A&P Assessment and Plan (1) Generalized weakness: Code(s): R53.1 - Weakness Status: Acute Assessment and Plan: Possibly secondary to a UTI Treat underlying cause PT OT eval completed Patient will transition to swing bed (2) Urinary tract infection: Code(s): N39.0 - Urinary tract infection, site not specified Status: Acute Assessment and Plan: UA positive for nitrate and leukocyte Estrace Continue Rocephin Culture Coagulase negative staphylococcus, not S.saprophyticus sensitivity pending (3) Hypokalemia: Code(s): E87.6 - Hypokalemia Status: Acute Assessment and Plan: Resolved Potassium 3.7 Continue supplement (4) Traumatic hematoma of buttock: Code(s): S30.0XXA - Contusion of lower back and pelvis, initial encounter Status: Acute Assessment and Plan: Status post fall Imaging indicates 11 x 7 x 3.5 cm hematoma within the right gluteus oswaldo muscle. No fracture. Continue conventional care (5) Atrial fibrillation: Code(s): I48.91 - Unspecified atrial fibrillation Status: Acute Assessment and Plan: Stable Continue metoprolol 50 mg daily Apixaban on hold until bleed is ruled out Continue telemetry (6) Anemia: Code(s): D64.9 - Anemia, unspecified Status: Acute Assessment and Plan: Hnrzbfypon33.1>8.0>7.1 >8.0 unsure of baseline Iron panel pending Possibly secondary to iron deficiency anemia versus hematoma Will monitor hemoglobin and hematocrit Will infuse for hemoglobin less than 6 Occult blood pending Subjective Date/time seen: 09/16/21 11:08 Interval history: Patient has no complaint, her pain is controlled she is tolerating her meals she slept well overnight and physical/occupational therapy is going well. The patient denies SOB, CP, palpitation, extremity numbness, lightheadedness, dizziness, constipation, diarrhea, chills, or fever. Patient will transition to swing bed tomorrow Exam Narrative: GENERAL: This is a well-nourished, well-developed patient, in no apparent distress. HEAD: normocephalic, atraumatic. EYES: PERRL. Sclera clear/white. Vision is grossly intact. EARS: External ears normal, auditory canals clear and without drainage, TMs normal without perforation. Hearing grossly intact. NOSE: External nose normal with no obvious nasal discharge, nares without redness, no rhinorrhea. THROAT: Mucous membranes moist, posterior pharynx clear. NECK: Neck supple, non-tender without lymphadenopathy, masses or thyromegaly. CARDIOVASCULAR: Regular rate and rhythm without murmurs, gallops, or rubs. RESPIRATORY: Clear to auscultation. Breath sounds equal bilaterally. No wheezes, rales, or rhonchi. GASTROINTESTINAL: Abdomen soft, non-tender, nondistended. Bowel sounds are active. No hepato-splenomegaly, or palpable masses. No guarding. SKIN: warm, intact with no suspicious lesions or rash, good texture and turgor. Large harden discoloration hematoma to the left lateral upper extremity extending from the hip to mid thigh area NEURO: awake, alert, and oriented to person, place and time. There were no obvious focal neurologic abnormalities. Steady gait EXTREMITIES: Normal range of motion. No edema. No calf tenderness. Negative Homans sign bilaterally. BACK: Nontender without deformity or crepitance. No flank tenderness. Objective Data Vital Signs Vital Signs: Vital Signs - 24 hr 09/15/21 11:59 09/15/21 13:48 09/15/21 16:00 Temperature Pulse Rate 96 94 115 H Respiratory Rate Blood Pressure Pulse Oximetry Oxygen Delivery 09/15/21 16:00 09/15/21 20:00 09/15/21 22:08 Temperature 98.2 F Pulse Rate 102 H 93 97 Respiratory Rate 18 Blood Pressure 154/98 H Pulse Oximetry 100 Oxygen Delivery Room Air 09/15/21 23:52 09/15/21 23:53 09/16/21 04:00 Temperature 97.6 F Pulse Rate 96 96 67 Respiratory Rate 20 Blood Pressure 113
[2021-09-16] MEDS: traZODone HCL 50 MG TABLET PO (20:28)
[2021-09-16 22:58] LABS: Folic Acid 17.6 ng/mL (8.6->20)
[2021-09-17] VITALS: BP 129/63; PULSE 87; RESP 20; TEMP 36.4; O2SAT 98
[2021-09-17 04:00] VITALS: PULSE 79
[2021-09-17 05:09] LABS: Hematocrit 24.2 % (35.0-42.0); Hemoglobin 7.7 g/dL (11.7-13.8); Mean Corpuscular HGB Conc 31.8 g/dL (32.0-36.0); Mean Corpuscular Hemoglobin 29.7 pg (27.0-31.0); Mean Corpuscular Volume 93.4 fL (78.0-102.0); Mean Platelet Volume 9.8 fl (9.2-11.8); Platelet Count Result 217 K/mm3 (150-420); Red Blood Count 2.59 M/mm3 (4.20-5.40); Red Cell Distribution Width 14.6 % (11.6-14.4)
[2021-09-17 05:18] LABS: Anion Gap 4 mmol/L (8-16); Blood Urea Nitrogen 15 mg/dL (7-18); Calcium 8.5 mg/dL (8.5-10.1); Carbon Dioxide 29 mmol/L (21-32); Chloride 100 mmol/L (98-108); Estimated CRCL calculation 46 ml/min; Estimated Glomerular Filt Rate > 60; Glucose 95 mg/dL (70-99); Osmolality Calculated 276 mOsm/kg (285-295); Potassium 4.1 mmol/L (3.5-5.1); Sodium 133 mmol/L (136-145)
[2021-09-17 06:14] VITALS: PULSE 105
[2021-09-17] MEDS: METOPROLOL TARTRATE 50 MG TAB BY MOUTH (06:14)
--- NOTE | 2021-09-17 07:57 | PM.DS ---
DS: Admitting Diagnosis Discharge Date 09/17/2021 Admitting Diagnosis Weakness status post fall DS: Discharge Diagnosis Discharge Diagnosis (1) Generalized weakness: Code(s): R53.1 - Weakness Status: Acute Assessment and Plan: Possibly secondary to a UTI Treat underlying cause PT OT eval completed Patient will transition to swing bed (2) Urinary tract infection: Code(s): N39.0 - Urinary tract infection, site not specified Status: Acute Assessment and Plan: UA positive for nitrate and leukocyte Estrace Continue Rocephin Culture Coagulase negative staphylococcus, not S.saprophyticus sensitivity pending (3) Hypokalemia: Code(s): E87.6 - Hypokalemia Status: Acute Assessment and Plan: Resolved Potassium 3.7 Continue supplement (4) Traumatic hematoma of buttock: Code(s): S30.0XXA - Contusion of lower back and pelvis, initial encounter Status: Acute Assessment and Plan: Status post fall Imaging indicates 11 x 7 x 3.5 cm hematoma within the right gluteus oswaldo muscle. No fracture. Continue conventional care (5) Atrial fibrillation: Code(s): I48.91 - Unspecified atrial fibrillation Status: Acute Assessment and Plan: Stable Continue metoprolol 50 mg daily Apixaban on hold until bleed is ruled out Continue telemetry (6) Anemia: Code(s): D64.9 - Anemia, unspecified Status: Acute Assessment and Plan: Lsekywwxul38.1>8.0>7.1 >8.0 unsure of baseline Iron panel pending Possibly secondary to iron deficiency anemia versus hematoma Will monitor hemoglobin and hematocrit Will infuse for hemoglobin less than 6 Occult blood pending DS: Summary Hospital Course Reason for hospitalization: Weakness Hospital Course: This is a 80-year-old female who presents to urgent care with complaints of weakness status post fall.? Patient has a past medical history of A. fib, hypertension, anxiety, and hyperlipidemia.? According to patient and her in approximately 7 days ago she fell in her garage while attempting to catch a kitten patient notes that she landed on her right side and sustained a bruise to the right side of her hip.? Patient notes that she came to the emergency department after her fall but I cannot find any records indicating that she was at our facility post fall.? According to her she has not been able to ambulate without feeling weakness to her lower extremities.? When questioned about her blacking out it was explained that she did not completely pass out she drifted to 1 side whenever she stood.? Both the patient and her denies any syncopal episode.? Her is unable to care for her at home and is requesting PT OT.? Patient was also in admitted for UTI which could be the cause of her weakness. Patient will transition to our swing bed today she is medically stable and cleared for rehab. Time Spent with Patient Time attestation: Total time spent providing and/or coordinating discharge services: Exam Narrative: GENERAL: This is a well-nourished, well-developed patient, in no apparent distress. HEAD: normocephalic, atraumatic. EYES: PERRL. Sclera clear/white. Vision is grossly intact. EARS: External ears normal, auditory canals clear and without drainage, TMs normal without perforation. Hearing grossly intact. NOSE: External nose normal with no obvious nasal discharge, nares without redness, no rhinorrhea. THROAT: Mucous membranes moist, posterior pharynx clear. NECK: Neck supple, non-tender without lymphadenopathy, masses or thyromegaly. CARDIOVASCULAR: Regular rate and rhythm without murmurs, gallops, or rubs. RESPIRATORY: Clear to auscultation. Breath sounds equal bilaterally. No wheezes, rales, or rhonchi. GASTROINTESTINAL: Abdomen soft, non-tender, nondistended. Bowel sounds are active. No hepato-splenomegaly, or palpable masses. No guarding. SKIN: warm, intact with no
[2021-09-17 08:00] VITALS: BP 143/89; PULSE 92; PULSE 97; RESP 16; TEMP 36.6; O2SAT 98
[2021-09-17] MEDS: DOCUSATE SODIUM 100 MG CAPSULE PO (08:18)
[2021-09-17] MEDS: CHOLECALCIFEROL 1,000 UNITS TABLET 1000 UNITS PO (08:18)
[2021-09-17] MEDS: LIDOCAINE 5% PATCH 1 PATCH TRANSDERM (08:18)
[2021-09-17] MEDS: MULTIVITAMINS THERAPEUTIC TAB (*BKC) 1 TABLET PO (08:18)
[2021-09-20 21:53] LABS: Haptoglobin 189 mg/dL (43-212)
== END 2021-09-17 09:35 | disposition swing bed (61) | DRG 690 ==
LOC: CHSED 03:09 → CHS2ND 04:55
PROVIDERS: Nurse Practitioner; Admitting Provider Internal Medicine; Emergency Provider Emergency Medicine; PCP Internal Medicine; Visit Provider Internal Medicine
DX: R55 Syncope and collapse (principal); N39.0 Urinary tract infection, site not specified; E87.6 Hypokalemia; I10 Essential (primary) hypertension; I48.20 Chronic atrial fibrillation, unspecified; I83.93 Asymptomatic varicose veins of bilateral lower extremities; E78.2 Mixed hyperlipidemia; M81.0 Age-related osteoporosis without current pathological fracture; F41.1 Generalized anxiety disorder; S30.0XXA Contusion of lower back and pelvis, initial encounter; W19.XXXA Unspecified fall, initial encounter; Z79.01 Long term (current) use of anticoagulants; D64.9 Anemia, unspecified
CPT/HCPCS: 36415; 73700; 80048; 80053; 82247; 82248; 82607; 82728; 82746; 83010; 83540; 83550; 85025; 85027; 85046; 86880; 97110; 97161; 97165; 97530; 99285; A9270; J0360; J0696; J2060; J7030

== ENCOUNTER 2021-09-17 09:24 | Inpatient (IN) | payer MEDICARE, SELFPAY ==
--- NOTE | 2021-09-17 09:43 | PM.IMHP ---
H&P: HPI History of Present Illness Date/Time: 09/17/21 09:43 Chief Complaint: Weakness Narrative: This is a 80-year-old female who presents to urgent care with complaints of weakness status post fall.? Patient has a past medical history of A. fib, hypertension, anxiety, and hyperlipidemia.? According to patient and her in approximately 7 days ago she fell in her garage while attempting to catch a kitten patient notes that she landed on her right side and sustained a bruise to the right side of her hip.? Patient notes that she came to the emergency department after her fall but I cannot find any records indicating that she was at our facility post fall.? According to her she has not been able to ambulate without feeling weakness to her lower extremities.? When questioned about her blacking out it was explained that she did not completely pass out she drifted to 1 side whenever she stood.? Both the patient and her denies any syncopal episode.? Her is unable to care for her at home and is requesting PT OT.? Patient was also in admitted for UTI which could be the cause of her weakness.? Patient will transition to our swing bed today she is medically stable and cleared for rehab. Review of Systems Review of Systems: All systems reviewed & are unremarkable except as noted in HPI and below PMFSH Past Medical History Medical History (Updated 09/17/21 @ 09:50 by GIOVANNA Hart-C) Age related osteoporosis Atrial fibrillation Chronic anticoagulation Chronic maxillary sinusitis Chronic pharyngitis Essential hypertension Generalized anxiety disorder Impaired fasting glucose Interstitial cystitis (chronic) without hematuria Mixed hyperlipidemia Other chronic allergic conjunctivitis Other persistent atrial fibrillation Trigeminal neuralgia Varicose veins of bilateral lower extremities with other complications Surgical History Surgical History History of hysterectomy Social History Social History Smoking status: Never smoker Alcohol intake: never Substance use type: prescription drug Spiritual care concerns: Yes (Caodaism) Meds Home Medications and Allergies Home Medications Medication Instructions Recorded Confirmed Type lactobacillus combination no.9 4 4,000 mmu cells PO DAILY 04/15/20 09/14/21 History billion cell capsule (Adult 50 Plus Probiotic) acetaminophen 325 mg capsule 325 mg PO Q6H PRN Pain, Moderate 08/02/20 09/14/21 History (Tylenol) cetirizine 10 mg capsule (Zyrtec) 10 mg PO DAILY PRN Allergy Symptoms 08/02/20 09/14/21 History chlordiazepoxide HCl 5 mg capsule 5 mg PO Q12H PRN Agitation 08/02/20 09/14/21 History cholecalciferol (vitamin D3) 25 25 mcg PO DAILY 08/02/20 09/14/21 History mcg (1,000 unit) capsule inulin 2 gram chewable tablet 2 g PO DAILY 08/02/20 09/14/21 History (Fiber Gummies) multivitamin with minerals-folic 1 tablet PO DAILY 08/02/20 09/14/21 History acid 200 mcg chewable tablet (Adult Multivitamin Gummies) apixaban 5 mg tablet (Eliquis) 5 mg PO BID 01/31/21 09/14/21 History metoprolol tartrate 50 mg tablet See Rx Instructions .Route 08/14/21 09/14/21 Rx .COMPLEX #270 tabs cephalexin 500 mg capsule 500 mg PO Q12H 7 days #14 caps 09/13/21 09/14/21 Rx Allergies Allergy/AdvReac Type Severity Reaction Status Date / Time metronidazole [From Flagyl] Allergy Mild Unknown Verified 09/14/21 04:20 nitrofurantoin Allergy Mild lightheaded Verified 09/14/21 04:20 [From Macrobid] Sulfa (Sulfonamide Allergy Mild Unknown Verified 09/14/21 04:20 Antibiotics) Exam Narrative: GENERAL: This is a well-nourished, well-developed patient, in no apparent distress. HEAD: normocephalic, atraumatic. EYES: PERRL. Sclera clear/white. Vision is grossly intact. EARS: External ears normal, auditory canals clear and without
--- NOTE | 2021-09-17 11:04 | PC.NURSE ---
Pt status changed from In Pt to Swing bed. All assesments remain the same.
[2021-09-17 11:11] VITALS: BMI 23.7
[2021-09-17] MEDS: ACETAMINOPHEN 325 MG TABLET 650 MG PO ×2 (14:18→19:56)
[2021-09-17 14:20] VITALS: PULSE 87
[2021-09-17] MEDS: METOPROLOL TARTRATE 50 MG TAB PO ×2 (14:20→21:07)
[2021-09-17 14:23] VITALS: BP 136/60; PULSE 87; RESP 16; TEMP 36.6; O2SAT 97
[2021-09-17 16:35] VITALS: BP 148/74; PULSE 91; RESP 18; TEMP 36.4; O2SAT 99
[2021-09-17] MEDS: SACCHAROMYCES BOULARDII 250 MG CAPSULE PO (18:00)
[2021-09-17] MEDS: DOCUSATE SODIUM 100 MG CAPSULE PO (21:02)
[2021-09-17] MEDS: CIPROFLOXACIN 500 MG TAB PO (21:02)
[2021-09-17] MEDS: APIXABAN 2.5 MG TABLET 5 MG PO (21:03)
[2021-09-17] MEDS: chlordiazePOXIDE (*CRX) 10 MG CAPSULE 5 MG PO (21:04)
[2021-09-17 21:07] VITALS: PULSE 91
[2021-09-17] MEDS: HYDROcodone/acetaminophen (*CRX) 7.5-325 MG TABLET 1 TAB PO (22:13)
[2021-09-17 22:15] VITALS: BP 148/82; PULSE 90; RESP 18; TEMP 36.7; O2SAT 96
[2021-09-17 23:35] VITALS: BP 146/80; PULSE 88; RESP 18; TEMP 36.1; O2SAT 96
[2021-09-18 06:10] VITALS: PULSE 88
[2021-09-18] MEDS: METOPROLOL TARTRATE 50 MG TAB PO ×3 (06:10→21:32)
[2021-09-18 08:00] VITALS: BP 145/92; PULSE 89; RESP 14; TEMP 36.7; O2SAT 98
[2021-09-18] MEDS: SACCHAROMYCES BOULARDII 250 MG CAPSULE PO ×2 (09:02→18:00)
[2021-09-18] MEDS: CIPROFLOXACIN 500 MG TAB PO ×2 (09:03→21:33)
[2021-09-18] MEDS: DOCUSATE SODIUM 100 MG CAPSULE PO ×2 (09:03→21:32)
[2021-09-18] MEDS: APIXABAN 2.5 MG TABLET 5 MG PO ×2 (09:03→21:32)
[2021-09-18] MEDS: LORATADINE 10 MG TABLET PO (09:03)
[2021-09-18] MEDS: MULTIVITAMINS THERAPEUTIC TAB (*BKC) 1 TABLET PO (09:03)
[2021-09-18] MEDS: CHOLECALCIFEROL 1,000 UNITS TABLET 1000 UNITS PO (09:03)
[2021-09-18 14:21] VITALS: PULSE 86
[2021-09-18 16:35] VITALS: BP 142/90; PULSE 88; RESP 16; TEMP 36.1; O2SAT 99
[2021-09-18] MEDS: ACETAMINOPHEN 325 MG TABLET 650 MG PO (18:49)
[2021-09-18 21:32] VITALS: PULSE 86
[2021-09-18] MEDS: traMADol HCL (*CRX) 25 MG TABLET PO (21:33)
[2021-09-18 23:39] VITALS: BP 139/87; PULSE 82; RESP 18; TEMP 36.4; O2SAT 98
[2021-09-19 06:02] VITALS: PULSE 80
[2021-09-19] MEDS: METOPROLOL TARTRATE 50 MG TAB PO ×3 (06:02→22:45)
[2021-09-19 07:53] VITALS: BP 142/65; PULSE 101; RESP 16; TEMP 36.8; O2SAT 95
[2021-09-19] MEDS: MULTIVITAMINS THERAPEUTIC TAB (*BKC) 1 TABLET PO (08:43)
[2021-09-19] MEDS: LORATADINE 10 MG TABLET PO (08:43)
[2021-09-19] MEDS: SACCHAROMYCES BOULARDII 250 MG CAPSULE PO ×2 (08:43→17:09)
[2021-09-19] MEDS: CHOLECALCIFEROL 1,000 UNITS TABLET 1000 UNITS PO (08:43)
[2021-09-19] MEDS: CIPROFLOXACIN 500 MG TAB PO ×2 (08:43→20:16)
[2021-09-19] MEDS: DOCUSATE SODIUM 100 MG CAPSULE PO ×2 (08:43→21:00)
[2021-09-19] MEDS: APIXABAN 2.5 MG TABLET 5 MG PO ×2 (08:44→20:16)
[2021-09-19] MEDS: ACETAMINOPHEN 325 MG TABLET 650 MG PO (15:30)
[2021-09-19 15:31] VITALS: PULSE 74
[2021-09-19 16:00] VITALS: BP 149/86; PULSE 91; RESP 16; TEMP 36.8; O2SAT 98
--- NOTE | 2021-09-19 18:43 | PC.NURSE ---
Patient asked poem writer about taking a shower and poem writer got everything ready after dinner. When poem writer got ready to assist patient with her shower, patient decided to go to bed instead. Trimming Operator attempted to encourage patient to shower and stay up, but patient insisted on going to bed before 6 pm.
[2021-09-19] MEDS: traMADol HCL (*CRX) 25 MG TABLET PO (19:31)
[2021-09-19 22:45] VITALS: PULSE 95
[2021-09-20] VITALS (7 sets, daily range): BP systolic 125–149; BP diastolic 61–94; PULSE 73–97; RESP 16–20; TEMP 36.1–36.8; O2SAT 96–98
[2021-09-20] MEDS: traMADol HCL (*CRX) 25 MG TABLET PO ×2 (04:16→20:37)
[2021-09-20] MEDS: METOPROLOL TARTRATE 50 MG TAB PO ×3 (06:02→22:01)
[2021-09-20] MEDS: APIXABAN 2.5 MG TABLET 5 MG PO ×2 (08:13→20:38)
[2021-09-20] MEDS: MULTIVITAMINS THERAPEUTIC TAB (*BKC) 1 TABLET PO (08:14)
[2021-09-20] MEDS: CHOLECALCIFEROL 1,000 UNITS TABLET 1000 UNITS PO (08:14)
[2021-09-20] MEDS: CIPROFLOXACIN 500 MG TAB PO ×2 (08:14→20:39)
[2021-09-20] MEDS: SACCHAROMYCES BOULARDII 250 MG CAPSULE PO ×2 (08:14→17:05)
[2021-09-20] MEDS: DOCUSATE SODIUM 100 MG CAPSULE PO ×2 (08:14→20:37)
[2021-09-20] MEDS: LORATADINE 10 MG TABLET PO (08:15)
[2021-09-20] MEDS: ACETAMINOPHEN 325 MG TABLET 650 MG PO (14:50)
[2021-09-20] MEDS: LORazepam (*CRX) 0.5 MG TABLET PO (20:40)
[2021-09-20] MEDS: chlordiazePOXIDE (*CRX) 10 MG CAPSULE 5 MG PO (20:40)
[2021-09-21] MEDS: traMADol HCL (*CRX) 25 MG TABLET PO ×3 (02:27→21:19)
[2021-09-21 06:00] VITALS: PULSE 102
[2021-09-21] MEDS: METOPROLOL TARTRATE 50 MG TAB PO ×3 (06:00→21:19)
[2021-09-21 08:00] VITALS: BP 130/73; PULSE 93; RESP 16; TEMP 36.6; O2SAT 99
[2021-09-21] MEDS: SACCHAROMYCES BOULARDII 250 MG CAPSULE PO ×2 (08:56→17:44)
[2021-09-21] MEDS: CHOLECALCIFEROL 1,000 UNITS TABLET 1000 UNITS PO (08:56)
[2021-09-21] MEDS: MULTIVITAMINS THERAPEUTIC TAB (*BKC) 1 TABLET PO (08:56)
[2021-09-21] MEDS: LORATADINE 10 MG TABLET PO (08:57)
[2021-09-21] MEDS: DOCUSATE SODIUM 100 MG CAPSULE PO ×2 (08:57→21:18)
[2021-09-21] MEDS: APIXABAN 2.5 MG TABLET 5 MG PO ×2 (08:57→21:18)
[2021-09-21] MEDS: CIPROFLOXACIN 500 MG TAB PO ×2 (08:57→21:18)
[2021-09-21 14:11] VITALS: PULSE 82
[2021-09-21 16:00] VITALS: BP 150/82; PULSE 94; RESP 18; TEMP 36.6; O2SAT 97
--- NOTE | 2021-09-21 20:31 | PC.NURSE ---
Pt ambulated to the bathroom via walker, gait belt, and standby assist. Pt voided clear, yellow urine and was returned back to bed. Pt performed hand hygiene before returning to bed and tolerated walking very well. Feet then elevated in bed w/pillow. Pt showed how to adjust lights with the call light.
[2021-09-21 21:19] VITALS: PULSE 99
[2021-09-21 23:01] VITALS: BP 148/77; PULSE 97; RESP 18; TEMP 37.2; O2SAT 96
[2021-09-22 06:26] VITALS: PULSE 95
[2021-09-22] MEDS: METOPROLOL TARTRATE 50 MG TAB PO ×3 (06:26→21:22)
[2021-09-22 08:00] VITALS: BP 152/80; PULSE 85; RESP 16; TEMP 36.6; O2SAT 97
--- NOTE | 2021-09-22 08:22 | PC.NURSE ---
Pt wore FRIDA hose all night in bed. Feet were elevated. Right calf measures 13 this am, Left calf measures 12 and 1/2 inches this am. Hospitalist Estefanía made aware.
[2021-09-22] MEDS: DOCUSATE SODIUM 100 MG CAPSULE PO ×2 (09:23→21:21)
[2021-09-22] MEDS: SACCHAROMYCES BOULARDII 250 MG CAPSULE PO ×2 (09:23→17:50)
[2021-09-22] MEDS: APIXABAN 2.5 MG TABLET 5 MG PO ×2 (09:24→21:21)
[2021-09-22] MEDS: LORATADINE 10 MG TABLET PO (09:24)
[2021-09-22] MEDS: MULTIVITAMINS THERAPEUTIC TAB (*BKC) 1 TABLET PO (09:24)
[2021-09-22] MEDS: CIPROFLOXACIN 500 MG TAB PO ×2 (09:24→21:21)
[2021-09-22] MEDS: CHOLECALCIFEROL 1,000 UNITS TABLET 1000 UNITS PO (09:25)
--- NOTE | 2021-09-22 12:08 | PC.NURSE ---
Pt 's right calf measures 14 , Left calf measures 13 . FRIDA brooks are on. RO
[2021-09-22 13:15] VITALS: PULSE 90
[2021-09-22] MEDS: ACETAMINOPHEN 325 MG TABLET 650 MG PO (13:15)
[2021-09-22 16:45] VITALS: BP 112/61; PULSE 87; RESP 18; TEMP 36.9; O2SAT 99
[2021-09-22 21:22] VITALS: PULSE 99
[2021-09-22] MEDS: traMADol HCL (*CRX) 25 MG TABLET PO (21:22)
[2021-09-22 23:03] VITALS: BP 149/89; PULSE 88; RESP 16; TEMP 36.8; O2SAT 97
[2021-09-23 05:26] LABS: Hematocrit 25.7 % (35.0-42.0); Hemoglobin 8.3 g/dL (11.7-13.8); Mean Corpuscular HGB Conc 32.3 g/dL (32.0-36.0); Mean Corpuscular Hemoglobin 31.4 pg (27.0-31.0); Mean Corpuscular Volume 97.3 fL (78.0-102.0); Mean Platelet Volume 9.4 fl (9.2-11.8); Platelet Count Result 261 K/mm3 (150-420); Red Blood Count 2.64 M/mm3 (4.20-5.40); Red Cell Distribution Width 18.1 % (11.6-14.4); White Blood Count 8.6 K/mm3 (4.8-10.8)
[2021-09-23 05:38] VITALS: PULSE 112
[2021-09-23] MEDS: METOPROLOL TARTRATE 50 MG TAB PO (05:38)
[2021-09-23 05:50] LABS: Anion Gap 4 mmol/L (8-16); Blood Urea Nitrogen 13 mg/dL (7-18); Calcium 8.3 mg/dL (8.5-10.1); Carbon Dioxide 28 mmol/L (21-32); Chloride 100 mmol/L (98-108); Estimated CRCL calculation 42 ml/min; Estimated Glomerular Filt Rate > 60; Glucose 104 mg/dL (70-99); NT Pro B Type Natriuretic Pept 3714 pg/mL (0-450); Osmolality Calculated 274 mOsm/kg (285-295); Potassium 3.8 mmol/L (3.5-5.1); Sodium 132 mmol/L (136-145)
[2021-09-23 08:00] VITALS: BP 149/86; PULSE 81; RESP 16; TEMP 37.1; O2SAT 98
[2021-09-23] MEDS: SACCHAROMYCES BOULARDII 250 MG CAPSULE PO (08:47)
[2021-09-23] MEDS: CHOLECALCIFEROL 1,000 UNITS TABLET 1000 UNITS PO (08:47)
[2021-09-23] MEDS: LORATADINE 10 MG TABLET PO (08:47)
[2021-09-23] MEDS: APIXABAN 2.5 MG TABLET 5 MG PO (08:48)
[2021-09-23] MEDS: CIPROFLOXACIN 500 MG TAB PO (08:48)
[2021-09-23] MEDS: MULTIVITAMINS THERAPEUTIC TAB (*BKC) 1 TABLET PO (08:48)
[2021-09-23] MEDS: DOCUSATE SODIUM 100 MG CAPSULE PO (08:48)
--- NOTE | 2021-09-23 11:31 | PM.DS ---
DS: Admitting Diagnosis Discharge Date 09/23/2021 Admitting Diagnosis Rehab, WEakness , UTI DS: Discharge Diagnosis Discharge Diagnosis (1) Weakness: Code(s): R53.1 - Weakness Status: Acute Assessment and Plan: ? Exhibit tolerance during physical activity as evidenced by a normal fluctuation of vital signs during physical activity. ? Patient will be ability to perform required activities of daily living. ? Provide appropriate nutrition for healing and strength. ? Use appropriate to prevent falls. ? Continue physical therapy/occupational therapy. (2) Anemia: Code(s): D64.9 - Anemia, unspecified Status: Acute Assessment and Plan: [id number]>8.0>7.1 >8.0 unsure of baseline Iron panel pending Possibly secondary to iron deficiency anemia versus hematoma Will monitor hemoglobin and hematocrit Will infuse for hemoglobin less than 6 No active bleeding noted (3) Urinary tract infection: Code(s): N39.0 - Urinary tract infection, site not specified Status: Acute Assessment and Plan: UA positive for nitrate and leukocyte Estrace Growth Coag neg Staph, not saprophyti Sensitive to Bactrim we will start Bactrim (4) Atrial fibrillation: Code(s): I48.91 - Unspecified atrial fibrillation Status: Acute Assessment and Plan: Stable Continue metoprolol 50 mg daily Continue Eliquis (5) Chronic anticoagulation: Code(s): 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 Patient has a past medical history of A-Fib, Anxiety, HLD and Hypertension. Patient has been clear by therapy and is set to go home where she will receive home health and some therapy there. Mrs. Campbell is able to participate in activity of daily living and she is ambulate with walker in the room . Patient has remained afebrile, eating and drinking without any difficulties vitals have remained stable and she not having much pain. at this time she will be discharged with family last set of labs patient t potassium was 3.8, sodium 132, BUN 13, creatinine 0.73, glucose 104, WBCs 8.6, RBCs 2.64, hemoglobin 8.3, [place] 25.7, platelets 261 patient will follow up with her primary care provider and all anticipatory needs of when to return if needed have been explained and discussed patient acknowledged understanding. Time Spent with Patient Time attestation: Total time spent providing and/or coordinating discharge services: Exam Narrative: GENERAL: This is a well-nourished, well-developed patient, in no apparent distress. HEAD: normocephalic, atraumatic. EYES: PERRL. Sclera clear/white. Vision is grossly intact. EARS: External ears normal, auditory canals clear and without drainage, Hearing grossly intact. NOSE: External nose normal with no obvious nasal discharge, nares without redness, no rhinorrhea. THROAT: Mucous membranes moist, posterior pharynx clear. NECK: Neck supple, non-tender without lymphadenopathy. CARDIOVASCULAR: Regular rate and rhythm . RESPIRATORY: Clear to auscultation. Breath sounds equal bilaterally. No wheezes, rales, or rhonchi.? GASTROINTESTINAL: Abdomen soft, non-tender, nondistended. Bowel sounds are active. No guarding. SKIN: warm, intact with no suspicious lesions or rash, good texture and turgor.? Large harden discoloration hematoma to the left lateral upper extremity extending from the hip to mid thigh area NEURO: awake, alert, and oriented to person, place and time. There were no obvious focal neurologic abnormalities.? Steady gait EXTREMITIES: Normal range of motion.? No edema. No calf tenderness. Negative Homans sign
--- NOTE | 2021-09-23 13:47 | PC.NURSE ---
Pt discharged home to family care. VSS. Home health has been notified and all information faxed to [facility]. Pt and family instructed regarding pt medications. All verbalized understanding of medication instructions. Pt belongings returned. RN assisted pt to family car in and assisted her into the vehicle.
--- NOTE | 2021-09-27 15:52 | PC.NURSE ---
Unable to contact for discharge call back.
== END 2021-09-23 13:20 | disposition home health service (06) | DRG 948 ==
PROVIDERS: Nurse Practitioner Family; Admitting Provider Internal Medicine; PCP Internal Medicine; Visit Provider Internal Medicine
DX: R53.1 Weakness (principal); N39.0 Urinary tract infection, site not specified; I48.20 Chronic atrial fibrillation, unspecified; S70.12XD Contusion of left thigh, subsequent encounter; S70.02XD Contusion of left hip, subsequent encounter; I10 Essential (primary) hypertension; I83.93 Asymptomatic varicose veins of bilateral lower extremities; D64.9 Anemia, unspecified; E78.5 Hyperlipidemia, unspecified; M81.0 Age-related osteoporosis without current pathological fracture; F41.9 Anxiety disorder, unspecified; W19.XXXD Unspecified fall, subsequent encounter; Z79.01 Long term (current) use of anticoagulants
CPT/HCPCS: 36415; 80048; 83880; 85027; 97110; 97161; 97165; 97530; 97535; A9270

== ENCOUNTER 2021-10-28 12:16 | Outpatient (CLI) | payer MEDICARE, SELFPAY ==
--- NOTE | 2021-10-28 13:30 | ECHO_ITS ---
Patient Info Name: Elva Campbell Age: 80 years : 1940 Gender: Female Ht: 64 in Wt: 125 lbs BSA: 1.60 m2 HR: 104 bpm BP: 180 / 113 mmHg Technical Quality: Fair Exam Date: 10/28/2021 12:31 PM Exam Location: [facility], [place] Patient Status: Outpatient Admit Date: 10/28/2021 Staff Ordering Physician: Kathe Villasenor MD Director Of Event Management: Marshall Lal RDCS, RT Attending Provider: Kathe Villasenor MD Referring Physician: Hamilton WATSON; Exam Type: CA echo doppler color flow Study Info Indications I50.9 - Heart failure, unspecified Complete two-dimensional, color flow and Doppler transthoracic echocardiogram is performed. Strain analysis performed. History/Risk Factors Hypertension: Yes Dyslipidemia: No Obesity: No Tobacco Use: Never DVT Treatment: Apixaban Deep Vein Thrombosis (DVT): None Frailty Scale (CSHA): 2: Well Summary 1. Complete two-dimensional, color flow and Doppler transthoracic echocardiogram is performed. 2. Left ventricular chamber dimension is normal. 3. Left ventricular systolic function is normal, estimated at 55-60%. 4. There is mildly increased left ventricular wall thickness. 5. The left ventricular diastolic function is grade III diastolic dysfunction. 6. E/e' 12 is mildly elevated. 7. Right ventricular systolic function is reduced based on mildly abnormal TAPSE 1.6 cm. 8. Left atrial chamber dimension is severely enlarged. 9. Right atrial chamber dimension is mildly enlarged. 10. There is severe aortic valve sclerosis. 11. There is moderate to severe aortic valve stenosis with a peak velocity of 209 cm/s, mean gradient of 10 mmHg, and aortic valve area of 0.9 cm2. 12. The mitral valve has moderately calcified annulus. 13. There is mild mitral valve regurgitation. 14. There is moderate tricuspid valve regurgitation. 15. Mild pulmonary hypertension, estimated pulmonary arterial systolic pressure is 41 mmHg. 16. There is trace pulmonic regurgitation. Left Ventricle E/e' 12 is mildly elevated. Left ventricular chamber dimension is normal. Left ventricular systolic function is normal, estimated at 55-60%. There is mildly increased left ventricular wall thickness. The left ventricular diastolic function is grade III diastolic dysfunction. Right Ventricle Right ventricular systolic function is reduced based on mildly abnormal TAPSE 1.6 cm. Right ventricular chamber dimension is not well visualized. Left Atria Left atrial chamber dimension is severely enlarged. Right Atria Right atrial chamber dimension is mildly enlarged. Aortic Valve The aortic valve is trileaflet. There is severe aortic valve sclerosis. There is moderate to severe aortic valve stenosis with a peak velocity of 209 cm/s, mean gradient of 10 mmHg, and aortic valve area of 0.9 cm2. There is no aortic valve regurgitation. Pulmonic Valve There is trace pulmonic regurgitation. Mitral Valve The mitral valve has moderately calcified annulus. There is no mitral valve stenosis. There is mild mitral valve regurgitation. Tricuspid Valve There is moderate tricuspid valve regurgitation. Mild pulmonary hypertension, estimated pulmonary arterial systolic pressure is 41 mmHg. Pericardium/Pleural There is no pericardial effusion. Inferior Vena Cava Normal inferior vena cava with >50% collapse upon inspiration consistent with normal right atrial pressure, 5 mmHg. Aorta The aortic root size at the sinus of Valsalva is norm
== END 2021-10-28 12:17 | disposition home or self-care (01) ==
LOC: CHSIMG 12:18
PROVIDERS: PCP Internal Medicine; Visit Provider Internal Medicine
DX: I34.0 Nonrheumatic mitral (valve) insufficiency (principal); I50.9 Heart failure, unspecified
CPT/HCPCS: 93306

== ENCOUNTER 2022-05-23 10:54 | Outpatient (CLI) | payer MEDICARE, SELFPAY ==
[2022-05-23 11:19] LABS: Basophils Absolute Auto 0.03 K/mm3 (0.00-0.10); Basophils Percent Auto 0.4 % (0.0-1.0); Eosinophils Absolute Auto 0.04 K/mm3 (0.02-0.50); Eosinophils Percent Auto 0.5 % (1.0-6.0); Hematocrit 39.2 % (35.0-42.0); Hemoglobin 13.2 g/dL (11.7-13.8); Immature Granulocyte Absolute 0.04 K/mm3 (0.00-0.00); Immature Granulocyte Percent A 0.5 % (0.0-0.0); Lymphocytes Percent Auto 17.7 % (18.0-42.0); Mean Corpuscular HGB Conc 33.7 g/dL (32.0-36.0); Mean Corpuscular Hemoglobin 30.6 pg (27.0-31.0); Mean Corpuscular Volume 90.7 fL (78.0-102.0); Mean Platelet Volume 10.7 fl (9.2-11.8); Monocytes Absolute Auto 0.45 K/mm3 (0.10-0.90); Monocytes Percent Auto 5.7 % (2.0-11.0); Neutrophils Percent Auto 75.2 % (50.0-70.0); Platelet Count Result 202 K/mm3 (150-420); Red Blood Count 4.32 M/mm3 (4.20-5.40); Red Cell Distribution Width 12.7 % (11.6-14.4); White Blood Count 7.9 K/mm3 (4.8-10.8)
[2022-05-23 11:28] LABS: Add Urine Microscopic? YES; Appearance Urine Slightly Cloudy (Clear); Bilirubin Urine Negative (Negative); Blood Urine Trace-Intact (Negative); Color Urine Light Yellow (Yellow); Glucose Urine UA Negative (Negative); Ketones Urine Negative (Negative); Leukocyte Esterase Ur 1+ LEU/UL (Negative); Nitrate Urine Negative (Negative); Protein Urine 1+ (Negative); Urobilinogen Urine 0.2 mg/dL (0.2-1.0); pH Urine 7.5 (5.0-8.0)
[2022-05-23 11:32] LABS: RBC Urine 0-2 /hpf (0-2); Squamous Epithelial Cell Urine Few /hpf (Few); WBC Urine 16-20 /hpf (0-3)
[2022-05-23 11:33] LABS: Bacteria Urine 1+ /hpf
[2022-05-23 11:36] LABS: Hemoglobin A1C 5.6 % (<5.7)
[2022-05-23 12:10] LABS: Alanine Aminotransferase 20 U/L (14-59); Albumin Level 3.8 g/dL (3.4-5.0); Alkaline Phosphatase 57 U/L (46-116); Anion Gap 9 mmol/L (8-16); Aspartate Amino Transferase 18 U/L (15-37); Bilirubin,Total 0.7 mg/dL (0.00-1.00); Blood Urea Nitrogen 13 mg/dL (7-18); Calcium 8.9 mg/dL (8.5-10.1); Carbon Dioxide 29 mmol/L (21-32); Chloride 101 mmol/L (98-108); Cholesterol 219 mg/dL (0-200); Estimated Glomerular Filt Rate 49; Ferritin 142 ng/mL (8-252); Free T3 2.32 pg/mL (2.18-3.98); Free T4 Free Thyroxine 1.05 ng/dL (0.76-1.46); Glucose 149 mg/dL (70-99); HDL Direct 86 mg/dL (40-60); Iron 74 ug/dL (50-170); LDL Cholesterol Calculated 121 mg/dL (<130); Osmolality Calculated 291 mOsm/kg (285-295); Potassium 3.5 mmol/L (3.5-5.1); Sodium 139 mmol/L (136-145); Thyroid Stimulating Hormone 1.89 uIU/mL (0.36-3.74); Total Protein 7.3 g/dL (6.4-8.2); Triglycerides 58 mg/dL (0-150)
== END 2022-05-23 10:55 | disposition home or self-care (01) ==
PROVIDERS: PCP Internal Medicine; Visit Provider Internal Medicine
DX: I10 Essential (primary) hypertension (principal); R73.01 Impaired fasting glucose; E78.2 Mixed hyperlipidemia; N39.0 Urinary tract infection, site not specified; R82.90 Unspecified abnormal findings in urine; D64.9 Anemia, unspecified
CPT/HCPCS: 36415; 80053; 80061; 81001; 82728; 83036; 83540; 84439; 84443; 84481; 85025; 87077; 87086; 87088; 87186

== ENCOUNTER 2023-02-05 13:27 | Outpatient (CLI) | payer MEDICARE, SELFPAY ==
--- NOTE | 2023-02-05 13:33 | ECHO_ITS ---
Patient Info Name: Elva Campbell Age: 82 years : 1940 Gender: Female Ht: 59 in Wt: 130 lbs BSA: 1.58 m2 HR: 78 bpm BP: 162 / 95 mmHg Technical Quality: Good Exam Date: 02/05/2023 2:29 PM Exam Location: [facility] Patient Status: Outpatient Admit Date: 02/05/2023 Staff Ordering Physician: Breezy De Jesus DO Supervisor [employer]: Leonid Jaramillo RDCS Attending Provider: Breezy De Jesus DO Referring Physician: Neal COLLINS; Exam Type: CA echo doppler color flow Study Info Indications - Nonrheumatic aortic valve stenosis Complete two-dimensional, color flow and Doppler transthoracic echocardiogram is performed. History/Risk Factors Hypertension: Yes Dyslipidemia: No Obesity: No Tobacco Use: Never DVT Treatment: Apixaban Deep Vein Thrombosis (DVT): None Frailty Scale (CSHA): 2: Well Summary 1. Complete two-dimensional, color flow and Doppler transthoracic echocardiogram is performed. 2. Left ventricular chamber dimension is normal. 3. Left ventricular systolic function is normal, estimated at 55-60%. 4. There is moderate concentric increased left ventricular wall thickness. 5. The left ventricular diastolic function is abnormal. 6. E/e' 15 is elevated. 7. Left atrial chamber dimension is severely enlarged. 8. Right atrial chamber dimension is severely enlarged. 9. There is moderate aortic valve sclerosis. 10. There is mild aortic valve stenosis with a peak velocity of 241 cm/s, mean gradient of 12 mmHg, and aortic valve area of 1.8 cm2. 11. The mitral valve has moderately calcified annulus. 12. There is moderate mitral valve regurgitation. 13. There is moderate to severe tricuspid valve regurgitation. 14. Mild pulmonary hypertension, estimated pulmonary arterial systolic pressure is 45 mmHg. 15. There is mild pulmonic regurgitation. Left Ventricle E/e' 15 is elevated. Left ventricular chamber dimension is normal. Left ventricular systolic function is normal, estimated at 55-60%. There is moderate concentric increased left ventricular wall thickness. The left ventricular diastolic function is abnormal. Right Ventricle Right ventricular systolic function is normal and with normal TAPSE 2.5 cm. Right ventricular chamber dimension is normal. Left Atria Left atrial chamber dimension is severely enlarged. Right Atria Right atrial chamber dimension is severely enlarged. Aortic Valve The aortic valve is trileaflet. There is moderate aortic valve sclerosis. There is mild aortic valve stenosis with a peak velocity of 241 cm/s, mean gradient of 12 mmHg, and aortic valve area of 1.8 cm2. There is no aortic valve regurgitation. Pulmonic Valve There is mild pulmonic regurgitation. Mitral Valve The mitral valve has moderately calcified annulus. There is no mitral valve stenosis. There is moderate mitral valve regurgitation. Tricuspid Valve There is moderate to severe tricuspid valve regurgitation. Mild pulmonary hypertension, estimated pulmonary arterial systolic pressure is 45 mmHg. Pericardium/Pleural There is no pericardial effusion. Inferior Vena Cava Normal inferior vena cava with >50% collapse upon inspiration consistent with normal right atrial pressure, 5 mmHg. Aorta The aortic root size at the sinus of Valsalva is normal. Left Ventricular Outflow Tract Name Value Normal LVOT 2D
== END 2023-02-05 13:28 | disposition home or self-care (01) ==
LOC: CHSIMG 13:29
PROVIDERS: PCP Internal Medicine; Visit Provider Internal Medicine Cardiovascular Disease
DX: I27.20 Pulmonary hypertension, unspecified (principal); I08.3 Combined rheumatic disorders of mitral, aortic and tricuspid valves
CPT/HCPCS: 93306

== ENCOUNTER 2023-07-23 10:43 | Outpatient (CLI) | payer MEDICARE, SELFPAY ==
[2023-07-23 11:03] LABS: Basophils Absolute Auto 0.04 K/mm3 (0.00-0.10); Basophils Percent Auto 0.4 % (0.0-1.0); Eosinophils Absolute Auto 0.07 K/mm3 (0.02-0.50); Eosinophils Percent Auto 0.7 % (1.0-6.0); Hematocrit 39.4 % (35.0-42.0); Immature Granulocyte Absolute 0.05 K/mm3 (0.00-0.00); Immature Granulocyte Percent A 0.5 % (0.0-0.0); Lymphocytes Absolute Auto 1.74 K/mm3 (1.10-4.50); Lymphocytes Percent Auto 16.2 % (18.0-42.0); Mean Corpuscular Hemoglobin 30.2 pg (27.0-31.0); Mean Corpuscular Volume 91.6 fL (78.0-102.0); Mean Platelet Volume 10.3 fl (9.2-11.8); Monocytes Absolute Auto 0.56 K/mm3 (0.10-0.90); Monocytes Percent Auto 5.2 % (2.0-11.0); Neutrophils Absolute Auto 8.28 K/mm3 (1.70-7.20); Platelet Count Result 219 K/mm3 (150-420); Red Cell Distribution Width 12.8 % (11.6-14.4); White Blood Count 10.7 K/mm3 (4.8-10.8)
[2023-07-23 11:04] LABS: Bilirubin Urine Negative (Negative); Blood Urine Trace-intact (Negative); Color Urine Light Yellow (Yellow); Glucose Urine UA Negative (Negative); Ketones Urine Negative (Negative); Leukocyte Esterase Ur 3+ (Negative); Nitrate Urine Negative (Negative); Protein Urine Trace (Negative); Specific Grav Ur 1.015 (1.010-1.020); Urobilinogen Urine 0.2 mg/dL (0.2-1.0); pH Urine 7.5 (5.0-8.0)
[2023-07-23 11:29] LABS: Hemoglobin A1C 5.1 % (<5.7)
[2023-07-23 11:34] LABS: Add Urine Microscopic? YES; Appearance Urine Cloudy (Clear); Bacteria Urine 4+ /hpf; RBC Urine 0-2 /hpf (0-2); Squamous Epithelial Cell Urine Few /hpf (Few); WBC Urine 31-50 /hpf (0-3)
[2023-07-23 11:49] LABS: Alanine Aminotransferase 19 U/L (14-59); Albumin Level 3.7 g/dL (3.4-5.0); Alkaline Phosphatase 65 U/L (46-116); Anion Gap 8 mmol/L (4-12); Aspartate Amino Transferase 17 U/L (15-37); Bilirubin,Total 0.6 mg/dL (0.00-1.00); Blood Urea Nitrogen 20 mg/dL (7-18); Calcium 9.3 mg/dL (8.5-10.1); Carbon Dioxide 31 mmol/L (21-32); Chloride 99 mmol/L (98-108); Cholesterol 235 mg/dL (0-200); Estimated Glomerular Filt Rate 52; Free T3 2.27 pg/mL (2.18-3.98); Glucose 134 mg/dL (70-99); HDL Direct 79 mg/dL (40-60); LDL Cholesterol Calculated 144 mg/dL (<130); NT Pro B Type Natriuretic Pept 2347 pg/mL (0-450); Osmolality Calculated 290 mOsm/kg (285-295); Potassium 3.5 mmol/L (3.5-5.1); Sodium 138 mmol/L (136-145); Thyroid Stimulating Hormone 2.78 uIU/mL (0.36-3.74); Triglycerides 61 mg/dL (0-150)
[2023-07-23 14:47] LABS: Free T4 Free Thyroxine 0.97 ng/dL (0.76-1.46)
== END 2023-07-23 10:44 | disposition home or self-care (01) ==
LOC: CHSLAB 10:44
PROVIDERS: PCP Internal Medicine; Visit Provider Internal Medicine
DX: I10 Essential (primary) hypertension (principal); R73.01 Impaired fasting glucose; I48.19 Other persistent atrial fibrillation; N30.10 Interstitial cystitis (chronic) without hematuria; I50.9 Heart failure, unspecified
CPT/HCPCS: 36415; 80053; 80061; 81001; 83036; 83880; 84439; 84443; 84481; 85025; 87086; 87088

== ENCOUNTER 2024-01-22 09:03 | Outpatient (CLI) | payer MEDICARE, SELFPAY ==
[2024-01-22 09:18] LABS: Basophils Absolute Auto 0.04 K/mm3 (0.00-0.10); Basophils Percent Auto 0.5 % (0.0-1.0); Eosinophils Absolute Auto 0.12 K/mm3 (0.02-0.50); Eosinophils Percent Auto 1.4 % (1.0-6.0); Hematocrit 39.4 % (35.0-42.0); Hemoglobin 13.4 g/dL (11.7-13.8); Immature Granulocyte Absolute 0.04 K/mm3 (0.00-0.00); Immature Granulocyte Percent A 0.5 % (0.0-0.0); Lymphocytes Absolute Auto 2.46 K/mm3 (1.10-4.50); Lymphocytes Percent Auto 28.3 % (18.0-42.0); Mean Corpuscular Hemoglobin 30.2 pg (27.0-31.0); Mean Corpuscular Volume 88.9 fL (78.0-102.0); Mean Platelet Volume 10.3 fl (9.2-11.8); Monocytes Absolute Auto 0.74 K/mm3 (0.10-0.90); Monocytes Percent Auto 8.5 % (2.0-11.0); Neutrophils Absolute Auto 5.28 K/mm3 (1.70-7.20); Neutrophils Percent Auto 60.8 % (50.0-70.0); Platelet Count Result 232 K/mm3 (150-420); Red Blood Count 4.43 M/mm3 (4.20-5.40); Red Cell Distribution Width 12.8 % (11.6-14.4); White Blood Count 8.7 K/mm3 (4.8-10.8)
[2024-01-22 09:31] LABS: Add Urine Microscopic? YES; Appearance Urine Clear (Clear); Bilirubin Urine Negative (Negative); Blood Urine 1+ (Negative); Color Urine Yellow (Yellow); Glucose Urine UA Negative (Negative); Ketones Urine Negative (Negative); Leukocyte Esterase Ur 3+ (Negative); Nitrate Urine Negative (Negative); Protein Urine 2+ (Negative); Specific Grav Ur 1.015 (1.010-1.020); Urobilinogen Urine 0.2 mg/dL (0.2-1.0)
[2024-01-22 09:39] LABS: Bacteria Urine 2+ /hpf; Squamous Epithelial Cell Urine Occasional /hpf (Few); WBC Urine >75 /hpf (0-3)
[2024-01-22 10:20] LABS: Hemoglobin A1C 5.4 % (<5.7)
[2024-01-22 10:45] LABS: Alanine Aminotransferase 26 U/L (14-59); Albumin Level 3.5 g/dL (3.4-5.0); Alkaline Phosphatase 70 U/L (46-116); Anion Gap 9 mmol/L (4-12); Aspartate Amino Transferase 19 U/L (15-37); Bilirubin,Total 0.8 mg/dL (0.00-1.00); Blood Urea Nitrogen 14 mg/dL (7-18); Calcium 9.2 mg/dL (8.5-10.1); Carbon Dioxide 29 mmol/L (21-32); Chloride 98 mmol/L (98-108); Cholesterol 238 mg/dL (0-200); Creatine Kinase 27 U/L (26-192); Estimated Glomerular Filt Rate 57; Free T4 Free Thyroxine 0.96 ng/dL (0.76-1.46); Glucose 119 mg/dL (70-99); HDL Direct 81 mg/dL (40-60); LDL Cholesterol Calculated 145 mg/dL (<130); Magnesium 2.3 mg/dL (1.8-2.4); NT Pro B Type Natriuretic Pept 3064 pg/mL (0-450); Osmolality Calculated 283 mOsm/kg (285-295); Potassium 3.7 mmol/L (3.5-5.1); Sodium 136 mmol/L (136-145); Thyroid Stimulating Hormone 3.54 uIU/mL (0.36-3.74); Total Protein 6.9 g/dL (6.4-8.2); Triglycerides 62 mg/dL (0-150); Vitamin B12 880 pg/mL (193-986)
== END 2024-01-22 09:04 | disposition home or self-care (01) ==
LOC: CHSLAB 09:06
PROVIDERS: PCP Internal Medicine; Visit Provider Internal Medicine
DX: E78.2 Mixed hyperlipidemia (principal); I10 Essential (primary) hypertension; R73.01 Impaired fasting glucose; F03.94 Unspecified dementia, unspecified severity, with anxiety; I50.9 Heart failure, unspecified
CPT/HCPCS: 36415; 80053; 80061; 81001; 82550; 82607; 83036; 83735; 83880; 84439; 84443; 85025